=== PATIENT | female | born 1995 | race Two or more races ===

== ENCOUNTER 2021-04-16 03:52 | Emergency (ER) | payer OTHER ==
[~2021-04-16] VITALS: Ht 157.5 cm; Wt 46.3 kg
[2021-04-16] MEDS ORDERED: VITAMIN C WIT1000 MG PO (10:29)
[2021-04-16] MEDS ORDERED: COLCHICINE0.6 MG PO (10:29)
[2021-04-16] MEDS ORDERED: IVERMECTIN3 MG PO (10:29)
[2021-04-16] MEDS ORDERED: VITAMIN D3-ALO1 EACH PO (10:29)
[2021-04-16] MEDS ORDERED: AZITHROMYCIN500 MG PO (10:29)
[2021-04-16] MEDS ORDERED: INTESTINEX680 M1 PO (10:45)
[2021-04-16] MEDS ORDERED: ACETAMINOPHEN650 M2 PO (10:45)
[2021-04-16] MEDS ORDERED: MELATONIN10 MG PO (10:45)
[2021-05-07] MEDS ORDERED: ACETAMINOPHEN650 M2 (21:04)
== END 2021-04-16 11:09 | disposition home or self-care (01) ==
LOC: ER 03:52
DX: U07.1 COVID-19 (principal); R50.9 Fever, unspecified; R11.2 Nausea with vomiting, unspecified; R09.81 Nasal congestion; R05 Cough; R51.9 Headache, unspecified; R43.9 Unspecified disturbances of smell and taste; R10.13 Epigastric pain